=== PATIENT | male | born 1975 | race American Indian/Alaskan Native ===

== ENCOUNTER 2020-09-01 20:23 | Emergency (ER) | payer BC ==
--- NOTE | 2020-09-01 23:44 | Emergency Department Report ---
HPI - General Chief Complaint: Extremity Injury, Lower Time Seen by Provider: 09/01/20 23:26 - HPI HPI: Room 2 Patient is a 45-year-old male present with a chief complaint of left ankle pain. 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 At [facility] had an x-ray performed of the ankle was diagnosed with a broken fibula. The patient was placed in a boot and told to come to the ED because they could not palpate a pulse. ED Past Medical Hx - Past Medical History Previous Medical History?: Yes Additional medical history: Hardware left ankle (teenager/early adulthood) - Surgical History Past Surgical History?: Yes Additional Surgical History: Left ankle hardware. Hernia - Family History Family history: no significant - Social History Smoking Status: Never Smoker Substance Use Type: None (Denies illicit drug use), Alcohol (Occasional) - Medications Home Medications: Home Medications Medication Instructions Recorded Confirmed Last Taken Type oxyCODONE /ACETAMINOPHEN [Percocet 1 - 2 tab PO Q6HR PRN #14 tablet 09/02/20 Unknown Rx 5/325] ED Review of Systems ROS: Stated complaint: LT FOOT INJURY/POOR CIRCULATION Other details as noted in HPI Constitutional: no symptoms reported Eyes: denies: eye pain ENT: denies: throat pain Respiratory: no symptoms reported Endocrine: no symptoms reported Gastrointestinal: denies: abdominal pain Genitourinary: denies: dysuria Musculoskeletal: arthralgia Neurological: denies: headache Physical Exam - Physical Exam Vital Signs: Vital Signs 09/01/20 20:41 Temperature 98.7 F Pulse Rate 77 Respiratory 18 Rate Blood Pressure 118/78 O2 Sat by Pulse 96 Oximetry Physical Exam: GENERAL: The patient is well-developed well-nourished male lying on stretcher not appearing to be in acute distress. [] HEENT: Normocephalic. Atraumatic. Extraocular motions are intact. Patient has moist mucous membranes. NECK: Supple. Trachea midline CHEST/LUNGS: There is no respiratory distress noted. HEART/CARDIOVASCULAR: Regular. There is no tachycardia. Dopplerable left DP SKIN: There is no rash. There is no edema. There is no diaphoresis. Fracture blisters present to the medial aspect of the left ankle. No laceration seen NEURO: The patient is awake, alert, and oriented. The patient is cooperative. The patient has no focal neurologic deficits. The patient has normal speech MUSCULOSKELETAL: There is swelling and tenderness of the left ankle and foot. ED Course Vital Signs 09/01/20 20:41 Temperature 98.7 F Pulse Rate 77 Respiratory 18 Rate Blood Pressure 118/78 O2 Sat by Pulse 96 Oximetry - Consultations Consultation #1: 09/02/20 00:07 Ortho paged. 09/02/20 00:11 X-ray sent to in case discussed with Dr. Amezcua. States it appears to be a stable calcaneal fracture. Okay to place in boot and follow-up in the office as an outpatient ED Medical Decision Making - Radiology Data Radiology results: report reviewed (Left ankle x-ray), image reviewed (Left ankle x-ray) interpreted by me: Left ankle [id number] fracture. Hardware from previous fibula fracture in place [facility] [address] [place] [address] XRay Report Signed Patient: FLORIDA DOMINGO MR#: [id number] : 1975 Acct:[id number] Age/Sex: 45 / M ADM Date: 09/01/20 Loc: ED Attending Dr: Ordering Physician: CHRIS DIEGO MD Date of Service: 09/01/20 Procedure(s): XR ankle 3+V LT Accession Number(s): [id number] cc: CHRIS DIEGO MD Fluoro Time In Minutes: LEFT ANKLE, 3 VIEWS INDICATION / CLINICAL INFORMATION: Left ankle pinned between a pallet blanquita and rail. Ankle pain COMPARISON: None available. FINDINGS: There is a minimally displaced mildly comminuted horizontal fracture of the inferior calcaneus. The remainder of the ankle is intact. 2 screws are present in the distal fibula just above the tibiotalar joint. Hardware is intact. There is diffuse soft tissue swelling through the ankle. IMPRESSION: Horizontal fracture through the inferior aspect of the calcaneus. Signer Name: Katerine Paniagua MD Signed: 09/02/2020 12:26 AM Workstation Name: [id number] Transcribed By: Dictated By: Katerine Paniagua MD Electronically Authenticated By: Katerine Paniagua MD Signed Date/Time: 09/02/2025 DD/ TD/TT: Print - Differential Diagnosis Fibula fracture, calcaneal fracture Critical care attestation.: If time is entered above; I have spent that time in minutes in the direct care of this critically ill patient, excluding procedure time. ED Disposition Clinical Impression: Left calcaneal fracture Disposition: TO HOME OR SELFCARE Is pt being admited?: No Does the pt Need Aspirin: No Condition: Stable Instructions: Calcaneal Fracture Repair Surgery, Cast or Splint Care, Adult Additional Instructions: Return to the emergency department should you develop worsening symptoms, inability to tolerate food or liquids, high fever or any other concerns Prescriptions: oxyCODONE /ACETAMINOPHEN [Percocet 5/325] 1 - 2 tab PO Q6HR PRN #14 tablet PRN Reason: Pain Referrals: PRIMARY CARE, [Primary Care Provider] - 3-5 Days TRES AMEZCUA MD [Staff Physician] - 2-3 Days (Dr. Amezcua is an orthopedic surgeon. Please follow-up with him for further management of your left calcaneal fracture) Time of Disposition: 00:35
[2020-09-01] MEDS ORDERED: fentaNYL 100 MCG/2 ML INJ IM ONE (23:57)
[2020-09-01] MEDS ORDERED: ONDANSETRON 4 MG/2 ML INJ IM ONE (23:57)
[2020-09-01] MEDS ORDERED: HYDROcodone/ACETAMINOPHEN 5-325 MG TAB PO ONE (23:58)
--- NOTE | 2020-09-02 00:30 | XRay Report ---
LEFT ANKLE, 3 VIEWS INDICATION / CLINICAL INFORMATION: Left ankle pinned between a pallet blanquita and rail. Ankle pain COMPARISON: None available. FINDINGS: There is a minimally displaced mildly comminuted horizontal fracture of the inferior calcaneus. The r emainder of the ankle is intact. 2 screws are present in the distal fibula just above the tibiotalar joint. Hardware is intact. There is diffuse soft tissue swelling through the ankle. IMPRESSION: Horizontal fracture through the inferior aspect of the calcaneus. Signer Name: Katerine Paniagua MD Signed: 09/02/2020 12:26 AM Workstation Name: [id number]
[2020-09-02 00:52] VITALS: BP 128/98
== END 2020-09-02 00:52 | disposition home or self-care (01) ==
LOC: ED 20:23
DX: S92.002A Unspecified fracture of left calcaneus, initial encounter for closed fracture (principal); Z98.890 Other specified postprocedural states; Z79.899 Other long term (current) drug therapy; X58.XXXA Exposure to other specified factors, initial encounter; Y93.89 Activity, other specified; Y92.89 Other specified places as the place of occurrence of the external cause; Y99.8 Other external cause status